=== PATIENT | male | born 1965 | race Caucasian/White ===

== ENCOUNTER 2024-11-28 18:27 | Emergency (ER) | payer OTHER, SELFPAY ==
[2024-11-28 18:34] VITALS: BP 128/72; PULSE 96; RESP 18; TEMP 36.9; O2SAT 97
--- NOTE | 2024-11-28 18:44 | EDNOTE_ITS ---
ED Extremity Problem RME/HPI General Chief complaint: Extremity Problem,Nontraumatic Stated complaint: LOWER LEG PAIN Time Seen by Provider: 11/28/24 18:31 Arrival date/time: 11/28/24 18:27 RME / HPI RME / HPI Narrative: DR. GINGER FLORES ED EVALUATION: 59 y/o male with SHx of titanium implants and Hx of Hypertension, Hepatitis, Cirrhosis, and Dialysis presents to ED BIB [facility] c/o redness and a dark lesion to the right lower arcos x yesterday. Patient reports having titanium implants from the ankles down to the toes. Patient has been in custody for the last 8 days. Implants were placed by Dr. Liu at [facility]. Per , patient was also sent to request a change of medication. Denies pain, nausea, fever, and vomiting. Patient has no allergies to medication. No other concerns or complaints expressed at this time. Related Data Previous Rx's ?Medication ?Instructions ?Recorded folic acid 1 mg tablet 1 mg PO QDAY #30 tabs nystatin 100,000 unit/gram topical 0 gm TOP BID ##30 0 03/09/16 powder (Nystop) thiamine HCl (vitamin B1) 100 mg 100 mg PO QDAY #30 ta bs 03/09/16 tablet (Vitamin B-1) gabapentin 800 mg tablet 800 mg PO BID #60 tabs 12/09 valacyclovir 1 gram tablet 1,000 mg PO TID #20 tabs sulfamethoxazole 800 1 tab PO BID #20 tabs mg-trimethoprim 160 mg tablet (Bactrim DS) Allergies Allergy/AdvReac Type Severity Reaction Status Date / Time No Known Allergies Allergy Verified 12/09/20 14:31 Review of Systems Review of Systems Systems Reviewed: All systems reviewed, normal except as documented Past Medical History Past Medical History CARDIAC: Positive Hypertension RESPIRATORY: Positive Asthma GASTROINTESTINAL: Positive Hepatitis, Cirrhosis and Gastrointestinal Bleed GENITOURINARY: Positive Kidney Stones, Dialysis and Benign Prostatic Hyperplasia MUSCULOSKELETAL: Positive Fractures Social History SMOKING STATUS: Current every day smoker SUBSTANCE USE: marijuana ED Exam Narrative Physical exam: GEN. APPEARANCE: The patient is alert awake oriented X-3 in no distress, lying down comfortably, does not look ill/toxic. Patient has good eye contact. Patient is cooperative. VITALS: All vitals were reviewed and the pulse ox is 97% on room air which is normal according to my interpretation. HEENT: Normocephalic, atraumatic. Pupils are equal and reactive. Oral mucosa is moist. Patent Nares NECK: Supple, nontender, no thyromegaly, no meningismus, no JVD CHEST: Symmetrical, atraumatic, and with equal expansion , Nontender on palpation no deformity and no crepitus. CARDIOVASCULAR: Heart regular rhythm no murmur or gallop rub or extra beats. LUNGS: Clear to auscultation bilaterally with symmetrical chest rise. No laboring tachypnea or wheezing. No intercostal subcostal retraction. No rales and no rhonchi. ABDOMEN: Soft, flat, nontender to palpation, no guarding or rebound tenderness. There are no abnormal masses palpated. Active and normal bowel sounds. EXTREMITIES: Nontender. No edema. No cyanosis. Patient is able to move all 4 extremities well, with full ROM and good CSM. Good DP pulse to left foot. RLE doppler DP pulse. SKIN: Warm and dry, no jaundice or rashes noted. Dark purple 1.5 cm lesion to the medial internal right arcos, [id number], fluctuance, and scaling to RLE. Exposed metal at medial surface of right foot, possibly a screw. 1.5 cm wound with good granulated tissue to the left heel. BL chronic venous stasis. RLE purple, cap refill, no pain. NEURO: Patient is HAWK x 4, Cranial nerves II through XII grossly intact. There is no focal neurologic deficits noted. GCS is 15, PNS and QUILL COLLECTOR appear grossly intact. PSYCHIATRIC: Patient is in normal mood and affect Course Course Course Narrative: 2233: Called Dr. Christiansen, our radiologist, regarding the patient's CTA LE results. States he will go over the CTA again and edit as needed. Quality Measures none Orders Category Date Time Status CT Screening NOW Care 11/28/24 18:45 Active IV [Insert IV] NOW Care 11/28/24 20:[address] angio LE RT Stat Exams 11/28/24 18:44 Completed XR ankle comp BI min 3V Stat Exams 11/28/24 23:21 Completed XR foot comp BI min 3V Stat Exams 11/28/24 23:21 Completed Blood Culture (Lab) Stat Lab 11/28/24 23:36 Received CBC Stat Lab 11/28/24 19:07 Completed CMP [Comprehensive Metabolic Panel] Stat Lab 11/28/24 19:07 Completed ESR [Sed Rate (ESR)] Stat Lab 11/28/24 19:07 Completed INR [Prothrombin Time with INR] Stat Lab 11/28/24 19:07 Completed Procalcitonin Stat Lab 11/28/24 19:07 Completed Piper/Tazo Inj [Zosyn Inj] 4.5 gm Med 11/28/24 23:21 Discontinued Sodium Chloride 0.9% (Pop) [NS 0.9% mini bag] 100 ml IV X1 TET,DIP/PERT AC (Adult)-Tdap [Boostrix Adult (Tdap) Med 11/28/24 19:00 Discontinued Vacc] 0.5 ml IMI .ONCE ONE Vancomycin Inj Med 11/29/24 00:46 Discontinued 500 mg .ROUTE .STK-MED ONE Vancomycin Inj 1,500 mg Med 11/28/24 23:21 Discontinued Sodium Chloride 0.9% 500 ml [Ns] 500 ml IV X1 Vital Signs Vital signs: Vital Signs Temperature 98.5 F 11/28/24 18:34 Pulse Rate 96 11/28/24 18:34 Respiratory Rate 18 11/28/24 18:34 Blood Pressure 128/72 11/28/24 18:34 Pulse Oximetry (%) 97 11/28/24 18:34 Oxygen Delivery Method Room Air 11/28/24 18:34 Extremity Problem MDM Narrative MDM Narrative:: Scribe Attestation: Yanique Cavanaugh am scribing for and in the presence of Dr. Singh. Provider Notation: Although this document has been carefully reviewed, there may still be some phonetic and other typographical errors.? These errors are purely grammatical due to imperfections in the software program and should not be construed in any way to?compromise the substance of the patient's medical care during this visit. Patient is a 59-year-old male medical history notable for peripheral vascular disease, prior fractures of bilateral ankles status post hardware placement in [facility] emergency department with concerns for abnormal skin growth on the medial surface of his right lower leg as well as exposed hardware in both of his feet. Vital signs and exam as above. Concern for failed hardware, osteomyelitis, deep space infection, arterial venous malformation, hemangioma, abscess of the right lower extremity, osteomyelitis. Ordered labs, bilateral ankle and foot x-rays, CT of bilateral lower extremities with contrast, and labs. Labs without any acute hematologic or significant metabolic abnormality. Patient with mild elevation in his inflammatory markers. 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 Provided patient with broad-spectrum antibiotics, ordered blood cultures. Initiated transfer for vascular and orthopedic surgery. 0018: [facility] declined the patient for transfer due to being at capacity. 0314: Discussed case with [facility]'s transfer center. Discussed patients ED course, exam findings, labs, and radiology results. Declined the patient for transfer due to their facility not doing revisions. 0600 at this time accepted under transition care over to oncoming provider Dr. Ba. Patient is pending discussion with an orthopedic surgical service that performs revisions as well as vascular surgery for definitive management of his exposed hardware, osteomyelitis and AVM of his lower extremity. Patient data External records reviewed:: [facility] previous records (Reviewed prior ED records from 06/30/23. Patient was seen for Chronic wound of extremity.) and Other (specify) ([facility]) Clinical information provided by:: patient and law enforcement Social determinants that could affect healthcare access:: substance use (Marijuana, Incarceration) Patient has the following chronic illnesses:: Hypertension, Asthma, Hepatitis, Cirrhosis, Kidney Stones, Benign Prostatic Hyperplasia How is presenting disease/condition affected by chronic disease/condition?: exacerbated by Evaluation data The following diagnostics were reviewed and interpreted by me:: lab results and radiology exam(s) Lab and/or radiology exams considered but not ordered:: None Interpretation Summary: RADIOLOGY CTA LE: [facility] Report Signed with Meraryenda Patient: KATHARINA CASE Med. Record#: [id number] Birthdate: 1965 Age/Sex: 59 / M [facility] Attending Dr: Ordering Physician: Elsy Singh MD Date of Service: 11/28/24 Procedure(s): CT angio LE RT Accession Number(s): [id number] cc: Emre Johnson MD; Satinder Christiansen MD; Elsy Singh MD~ ADDENDUM ADDENDUM #1 Examination: CTA right lower extremity with intravenous contrast 2-D reconstructions 3-D reconstructions, vascular Date and time of exam: November 28, 20242025 hours INDICATIONS: Thigh pain this week CTDI: vol (mGy) 4.18 DLP: (mGycm) 494 Technique: Multiple axial sections of the right lower extremity with intravenous contrast 2-D sagittal and coronal reconstructions. 3-D angiographic renderings, 3-D volume renderings, 3D post processing, vascular maximum intensity projections obtained. Contrast administered is cc [id number]. Low dose protocols were performed. One or more of the following dose reduction techniques were used; automated exposure control, adjustment of the mA and/or KV according to patient size, use of iterative reconstruction technique. Findings: Distal aorta right common iliac right external iliac right common femoral artery is intact Superficial femoral artery intact There is prominent arterioles and draining veins in the medial thigh, angiodysplasia versus arteriovenous malformation, 3-D image 6 Popliteal artery trifurcation vessels do fill to the ankle No femur or tibia-fibula fractures right lower extremity Advanced narrowing lateral patellofemoral joint Posterior right calcaneal screws do protrude through the soft tissue to the skin surface posteriorly, on the left, axial image 549 as well as near the skin surface lateral surface of the calcaneus axial image 549 Cortical bone destruction involving the lateral calcaneus on the right axial image 552 Incidental note cortical bone destruction involving the posterior medial right calcaneus axial images 541 IMPRESSION: Prominent arterials and draining veins in the medial right thigh, angiodysplasia versus arteriovenous malformation Osteomyelitis bilateral calcaneus with orthopedic hardware exposed at the skin surface posterior calcaneus on the right Recommend bilateral plain films right and left foot follow-up ORIGINAL REPORT Examination: AP chest single view FINDINGS: AP portable semiupright chest single view Date and time: November 28, 2024 10:20 PM INDICATIONS: Left-sided flank pain today, sepsis protocol FINDINGS: Normal heart size. Lungs are clear. Orthopedic screws upper thoracic spine and clips right apex IMPRESSION: No pneumothorax or pulmonary contusion Addendum Dictated By: Satinder Christiansen MD Addendum Signed By: <Electronically signed by Satinder Christiansen MD in OV> 11/28/242244 Addendum Cosigned By: DD/ TD/TT: 11/28/24 Examination: AP chest single view FINDINGS: AP portable semiupright chest single view Date and time: November 28, 2024 10:20 PM INDICATIONS: Left-sided flank pain today, sepsis protocol FINDINGS: Normal heart size. Lungs are clear. Orthopedic screws upper thoracic spine and clips right apex IMPRESSION: No pneumothorax or pulmonary contusion Dictated By: Satinder Christiansen MD Signed By: <Electronically signed by Satinder Christiansen MD in OV> 11/28/242225 [facility] Report Signed Patient: KATHARINA CASE Record#: [id number] Birthdate: 1965 Age/Sex: 59 / M Location: [facility] Attending Dr: Ordering Physician: Elsy Singh MD Date of Service: 11/28/24 Procedure(s): XR ankle comp BI min 3V Accession Number(s): [id number] cc: Josefina([facility])Zayra MD; Satinder Christiansen MD; Elsy Singh MD~ Examination: Ankle Bilateral, 6 views Technique: Lateral each ankle total 6 views Date and time of exam: November 28, 2024 11:56 PM INDICATIONS: Chronic nonhealing wounds both feet several months, surgery to both feet 7 years ago Findings: Severe osteopenia Extensive orthopedic hardware right ankle including distal fibula, distal tibia, calcaneus, tarsal metatarsals Soft tissue defects distal right tibia which extend to a tibial sideplate with bone destruction involving the distal lateral tibial margin on the oblique view Orthopedic screws traversing left talus and calcaneus with calcaneal orthopedic screw protruding into the soft tissue posterior left ankle with cortical bone destruction at this site posterior calcaneus IMPRESSION: Osteomyelitis distal lateral right tibial margin Osteomyelitis posterior left calcaneus Dictated By: Satinder Christiansen Signed By: <Electronically signed by Satinder Christiansen MD in OV> 11/29/24 0010 [facility] Report Signed Patient: KATHARINA CASE. Record#: [id number] Birthdate: 1965 Age/Sex: 59 / M Location: [facility] Attending Dr: Ordering Physician: Elsy Singh MD Date of Service: 11/28/24 Procedure(s): XR foot comp BI min 3V Accession Number(s): [id number] cc: Josefina([facility]),Zayra MONTESINOS; Satinder Christiansen MD; Elsy Singh MD~ Examination: Foot bilateral, 5 views Technique: Bilateral AP, right and left oblique, lateral views foot, 5 views Date and time of exam: November 28, 2024 11:53 PM INDICATIONS: Nonhealing wounds right and left foot several months, surgery to right nephrolith 7 years ago IMPRESSION: Please see the ankle reports Right foot tarsometatarsal fusions first and second rays No cortical bone destruction involving right metatarsals or digits Metatarsals and digits left foot intact IMPRESSION: Please see the bilateral ankle reports No cortical bone destruction involving the metatarsals or digits right and left foot Dictated By: Satinder Christiansen MD Signed By: <Electronically signed by Satinder Christiansen MD in OV> 11/29/24 0013 Medications / Prescriptions Medications or Prescriptions considered but not ordered:: None Medication administrations:: Medication Administration History Discontinued Medications Diphtheria/Tetanus/Acell Pertussis (Diphth,Pertuss(Acell),Tet Vac 0.5 Ml Syr- Adult) 0.5 ml IMi .ONCE ONE Stop: 11/28/24 19:01 Last Admin: 11/28/24 20:00 Dose: 0.5 ml Documented By: JESSICA Vancomycin HCl 1,500 mg/ (Sodium Chloride) 500 mls @ 300 mls/hr IV X1 ONE Stop: 11/29/24 01:00 Last Infusion: 11/29/24 02:42 Dose: Infused Documented By: Admin: 11/29/24 00:55 Dose: 300 mls/hr Documented By: CVL Piperacillin Sod/Tazobactam (Sod 4.5 gm/ Sodium Chloride) 100 mls @ 200 mls/hr IV X1 ONE Stop: 11/28/24 23:50 Last Infusion: 11/29/24 00:49 Dose: Infused Documented By: Admin: 11/29/24 00:16 Dose: 200 mls/hr Documented By: CVL Vancomycin HCl (Vancomycin Inj 500 Mg Vial) Confirm Administered Dose 500 mg .ROUTE .STK-MED ONE Stop: 11/29/24 00:47 Last Admin: 11/29/24 00:59 Dose: Not Given Documented By: CVL Non-Admin Reason: Duplicate Medication on eMAR See above if any Consultations Consultation(s) initiated? (list below): No Diagnosis Extremity Problem Differential Diagnosis: gout, cellulitis, superficial thrombophlebitis, deep venous thrombosis of upper extremity, lower extremity edema and deep vein thrombosis of lower extremity Most likely diagnosis given after review of the tests above:: see clinical impression below Admission Indicated Admission indicated?: not indicated Explain why admission is indicated or not indicated:: Patient requires a higher reprh-it-yoga. Admission Request Was there a request for admission?: No Disposition Plan Disposition Plan: other (specify) (Signed out to Dr. aB at 0600 pending transfer.) Critical Care Time Critical Care Time Critical Care Time: Yes Total Critical Care Time (min.): 40 Attestation: The high probability of sudden, clinically significant deterioration in the patient?s condition required the highest level of my preparedness to intervene urgently. The services I provided to this patient were to treat and/or prevent clinically significant deterioration. Services included the following: chart data review, reviewing nursing notes and/or old charts, documentation time, investment consultant collaboration regarding findings and treatment options, medication orders and management, direct patient care, vital sign assessments and ordering, interpreting and reviewing diagnostic studies and lab tests. Aggregate critical care time includes only time during which I was engaged in work directly related to the patient?s care, as described above, whether at bedside or elsewhere in the Emergency Department. It did not include time spent performing other reported procedures or the services of residents, students, nurses or physician assistants. Discharge Plan Prescriptions/Referrals Prescriptions/Med Rec: No Action thiamine HCl (vitamin B1) [Vitamin B-1] 100 MG tablet 100 mg PO QDAY Qty: 30 0RF folic acid 1 MG tablet 1 mg PO QDAY Qty: 30 0RF nystatin [Nystop] 60 GM powder 0 gm TOP BID Qty: 30 0RF valacyclovir 1 gram tablet 1,000 mg PO TID Qty: 20 0RF gabapentin 800 mg tablet 800 mg PO BID Qty: 60 0RF sulfamethoxazole-trimethoprim [Bactrim DS] 800-160 mg tablet 1 tab PO BID Qty: 20 0RF Referrals: Emre Johnson MD [Physician] - In 1 week Problem List Clinical Impression: Osteomyelitis, Arterio-venous malformation, Exposed orthopaedic hardware, Vascular disease Patient/Caregiver Discharge Instructions Print Language: St Helen[place]
[2024-11-28 18:53] VITALS: BMI 20.2
[2024-11-28 19:15] LABS: Basophils % (Auto) 0 % (0-2.5); Eosinophils # (Auto) 0.3 Thou/mm3 (0.0-0.5); Eosinophils % (Auto) 4 % (0-10); Hematocrit 45.2 % (41.0-53.0); Hemoglobin 15.6 g/dL (13.5-16.0); Immature Granulocytes % (Auto) 0 % (0-0); Immature Granulocytes Auto 0.02 Thou/mm3 (0.00-0.00); Lymphocytes # (Auto) 1.3 Thou/mm3 (1.0-4.8); Lymphocytes % (Auto) 18 % (10-50); Mean Corpuscular HGB Conc 34.5 g/dl (31.0-37.0); Mean Corpuscular Hemoglobin 29.1 pg (25.0-35.0); Mean Corpuscular Volume 84 fL (80-100); Monocytes # (Auto) 0.6 Thou/mm3 (0.0-0.8); Monocytes % (Auto) 9 % (0-12); Neutrophils # (Auto) 4.9 Thou/mm3 (1.8-7.7); Neutrophils % (Auto) 69 % (37-80); Nucleated Red Blood Cell % 0 /100 WBC (0); Platelet Count 258 Thou/mm3 (140-440); RDW Standard Deviation 44.6 fL (35.1-43.9); Red Blood Count 5.36 Miln/mm3 (4.50-5.90); White Blood Count 7.1 Thou/mm3 (3.8-10.6)
[2024-11-28 19:35] LABS: INR 1.1 (0.9-1.3); Prothrombin Time 11.7 Seconds (9.0-12.2)
[2024-11-28 19:47] LABS: Alanine Aminotransferase 99 U/L (10-49); Albumin, Serum 4.5 gm/dL (3.5-5.0); Albumin/Globulin Ratio 1.8 (1.2-2.2); Alkaline Phosphatase 207 U/L (46-116); Anion Gap 8 (7-16); Aspartate Amino Transferase 21 U/L (0-34); BUN/Creatinine Ratio 12 Ratio (12-20); Bilirubin,Total 0.3 mg/dL (0.3-1.2); Blood Urea Nitrogen 16 mg/dL (9-23); Calcium 9.8 mg/dL (8.3-10.6); Calcium (Corrected) 9.8 mg/dL (8.5-10.1); Carbon Dioxide 28.2 mMol/L (20.0-31.0); Chloride 101 mMol/L (98-107); Creatinine (Component) 1.3 mg/dL (0.6-1.3); Estimated Creatinine Clearance 60.1 mL/min (>60); Globulin 2.5 gm/dL (2.3-3.5); Glucose 98 mg/dL (74-106); Osmolality,Calculated 275 (275-295); Potassium 4.6 mMol/L (3.4-5.1); Procalcitonin 0.11 ng/ml (0.0-0.49); Sodium 137 mMol/L (136-145); eGFR > 60 See Note
[2024-11-28 19:57] LABS: Sed Rate (ESR) 23 mm/hr (0-20)
[2024-11-28] MEDS: DIPHTH,PERTUSS(ACELL),TET VAC 0.5 ML SYR- ADULT IMi (20:00)
--- NOTE | 2024-11-28 23:21 | XR_ITS ---
Examination: Ankle Bilateral, 6 views Technique: Lateral each ankle total 6 views Date and time of exam: November 28, 2024 11:56 PM INDICATIONS: Chronic nonhealing wounds both feet several months, surgery to both feet 7 years ago Findings: Severe osteopenia Extensive orthopedic hardware right ankle including distal fibula, distal tibia, calcaneus, tarsal metatarsals Soft tissue defects distal right tibia which extend to a tibial sideplate with bone destruction involving the distal lateral tibial margin on the oblique view Orthopedic screws traversing left talus and calcaneus with calcaneal orthopedic screw protruding into the soft tissue posterior left ankle with cortical bone destruction at this site posterior calcaneus IMPRESSION: Osteomyelitis distal lateral right tibial margin Osteomyelitis posterior left calcaneus
--- NOTE | 2024-11-28 23:21 | XR_ITS ---
Examination: Foot bilateral, 5 views Technique: Bilateral AP, right and left oblique, lateral views foot, 5 views Date and time of exam: November 28, 2024 11:53 PM INDICATIONS: Nonhealing wounds right and left foot several months, surgery to right nephrolith 7 years ago IMPRESSION: Please see the ankle reports Right foot tarsometatarsal fusions first and second rays No cortical bone destruction involving right metatarsals or digits Metatarsals and digits left foot intact IMPRESSION: Please see the bilateral ankle reports No cortical bone destruction involving the metatarsals or digits right and left foot
--- NOTE | 2024-11-28 23:46 | PC.NURSE ---
CONTACTED [facility] [phone] SPOKE WITH ONI ABOUT POSSIBLY TRANSFERRING THE PATIENT TO THAT FACILITY DUE TO PATIENT HAVING PRIOR SURGERY THERE WITH DR MOREIRA. TRANSFER PACKET FAXED [phone]
[2024-11-28 23:53] VITALS: BP 120/74; PULSE 70; RESP 17; TEMP 37; O2SAT 96
[2024-11-29] VITALS (8 sets, daily range): BP systolic 99–120; BP diastolic 52–70; PULSE 53–70; RESP 16–20; TEMP 36.7–37.1; O2SAT 95–99
[2024-11-29] MEDS: PIPER/TAZO INJ 4.5 GM in SODIUM CHLORIDE 0.9% (POP) 100 ML IV ×2 (00:16→21:39)
--- NOTE | 2024-11-29 00:41 | PC.NURSE ---
JAYLYN WOO DECLINED DUE TO CAPACITY
[2024-11-29] MEDS: Vancomycin Inj 1,500 MG in SODIUM CHLORIDE 0.9% 500 ML 500 ML 300 MG IV (00:55)
--- NOTE | 2024-11-29 01:07 | PC.NURSE ---
[facility] CONTACTED FOR POSSIBLE TRANSFER ORTHO AND VASCULAR, SPOKE WITH PHIL AND SHE IS GOING TO REVIEW PACKET. IMAGES PUSHED ON SYNAPSE
--- NOTE | 2024-11-29 01:16 | PC.NURSE ---
[facility] CONTACTED FOR POSSIBLE TRANSFER,SPOKE WITH JANIS, HE WILL REVIEW PACKET AND CALL BACK
--- NOTE | 2024-11-29 03:26 | PC.NURSE ---
[facility] DECLINED STATED THAT THEY DONT DO REVISIONS OF HARDWARE AND TO REACH OUT TO [facility]
--- NOTE | 2024-11-29 03:27 | PC.NURSE ---
[facility] CONTACTED, SPOKE WITH JORDY, ADVISED LOOKING FOR TRANSFER, SHE WILL CALL BACK
--- NOTE | 2024-11-29 06:49 | EDNOTE_ITS ---
Emergency Room Addendum <Karolina Raphael - Last Filed: 11/29/24 16:19> Addendum Narrative: I took over the care from Dr. Singh, the previous shift physician at 0600 hours on 11/29/2024.? See previous notes for complete H & P and ED course. I reviewed all diagnostic test results. My interpretation of the EKG is? My review of the CT report is? Blood tests and urine tests At this point, diagnoses include osteomyelitis, exposed orthopaedic hardware Treatment here included Significant improvement Based on my best medical judgment, made decision no further evaluation or treatment indicated at this time.? Patient understands and agrees to the d ischarge instructions customized and printed, see below. Discharge Instructions from Dr. Ba printed for you: 1. After evaluation, you have osteomyelitis (bone infection) in lower extremities. 2. We tried to transfer you to another facility due to lack of orthopedic services here currently. But every facility declined because no emergent intervention is indicated. 3. Take doxycycline as prescribed for 45 days. 4. [facility] in [place] for wants to see you on 12/04/2024 at their Podiatry Clinic in [place] (Dr. Smith). The address is [address] [place] [address]. Phone number is [phone]. Call the office tomorrow morning to make the appointment. Ask to review all test results and official radiology reports, to make sure you receive all necessary follow-ups and monitoring. 5. When resting or sitting or sleeping, elevate both feet and ankles above your waist level. 6. Seek immediate medical care with fever or with any concerns. Sushant Ba MD <Sushant Ba MD - Last Filed: 11/29/24 17:41> Addendum Narrative: I took over the care from Dr. Singh, previous shift physician at 0600 on 11/29/2024.? See previous notes for complete H & P and ED course. At this point, diagnoses include osteomyelitis, exposed orthopaedic hardware. Our transfer nurse has tried to find facility to take care of the patient without success, will continue the effort. At 6 PM on 11/29/2024, the care of the patient was transferred to Dr. Singh. During my watch, the patient remained stable. Sushant Ba MD
--- NOTE | 2024-11-29 08:17 | PC.CM ---
Addendum entered by Gaby Yuen RN 11/29/24 19:26: I called [facility] to make sure I had the right fax number because it was not going thought. They gave me another number to try [phone]. The other number I had was correct [phone]. I faxed information to [facility] at this time. Addendum entered by Gaby Yuen RN 11/29/24 19:16: I reported off to [place] charge nurse and left packet with him in the ED. Packet started and 1 CD in packet. I did not cancel the appointment at [facility] in [place] just in case patient was not accepted anywhere. Addendum entered by Gaby Yuen RN 11/29/24 18:47: I contacted [facility] and initiated transfer. Addendum entered by Gaby Yuen RN 11/29/24 18:34: I contacted [facility] and I spoke to housekeeper child care Sumit phone # [phone]. He transferred me to the ED charge nurse and she asked me to fax over information. She states they are at change of shift so they will hand it to the night doctor coming on. I faxed information at this time to [phone]. Addendum entered by Gaby Yuen RN 11/29/24 17:37: Dr. Ba called me back and stated Dr. Cunha would like me to call [facility] phone # [phone] . He [address]. Cunha worked at [facility] and he thinks they will accept patient. Dr. Cunha called me also and he provided me with his cell number [phone]. He asked that I call [facility] and [facility] in [place]. I let him know I would reach out to those hospitals. Addendum entered by Gaby Yuen RN 11/29/24 15:37: I spoke to Dr. Ba and he states patient will be discharged. I let him know that Jose Guadalupe can see patient at their Podiatry Clinic in [place] and the address is [address] [place] [address]. phone # [phone]. Transfer nurse states they can see patient on TuesdayDecember 04. Patient needs to call the number provided # [phone]. Addendum entered by Gaby Yuen RN 11/29/24 13:32: I called [facility] transfer center and I let Annabelle know that Dr. Ba was ordering more tests. I let her know that we would get back to her concerning outpatient appointment. I let Annabelle know Dr. Ba wanted to see the results from his new tests he ordered to make sure patient would be stable to wait and follow up as outpatient. Patient was declined by [facility], [facility], [facility], and [facility]. Addendum entered by Gaby Yuen RN 11/29/24 13:20: [facility] in [place] called me and I spoke to transfer nurse Annabelle. She states their ortho doctor reviewed patients information and he feels patient does not need to be transferred. Dr. Smith states patient can follow up at their Podiatry Clinic in [place]. the address is [address] [place] [address]. phone # [phone]. I called and provided information to Jesenia. He stated he ordered more tests, so he wanted to see what the test showed before deciding. Addendum entered by Gaby Yuen RN 11/29/24 11:13: 1045 [facility] called back and stated they are at capacity and they declined transfer. Addendum entered by Gaby Yuen RN 11/29/24 11:12: 1010 I contacted [facility] to initiate transfer. I spoke to Ref[place] and faxed over information. Original Note: 5646 [facility] transfer nurse Annabelle called me back and stated there ortho doctor is in surgery this morning but they will present patient. I let her know our doctor is stating patient will need vascular and ortho. I transferred her to Dr. Ba. Mickey stated packet has been started and they have the CD. 3458 I faxed information to [facility]. 2806 I received a call from Mickey stating patient was declined by [facility] because they were at capacity. Patient had surgery and had hardware placed in [facility] in 2017. Mickey states [facility] declined and so did [facility]. [facility] stated patient need a tertiary center or trauma center.
--- NOTE | 2024-11-29 09:30 | PC.NURSE ---
CONTACTED BY RN SPRAY GUN REPAIRER HELPER AT [facility], UPDATE OF STATUS OF PATIENT GIVEN. DR. LISA IBARRA [phone] AT FACILITY CAN BE CONTACTED IF NEEDED.
--- NOTE | 2024-11-29 12:06 | XR_ITS ---
Examination: Arterial duplex lower extremity study. INDICATIONS: Nonhealing wounds in the legs one year Date and time of exam: November 29, 2024 1214 hours Findings: Duplex sonographic imaging of the lower extremity arteries using B-mode/Bocanegra scale imaging and Doppler spectral analysis and color flow. Ankle brachial indices have been recorded. Right common femoral artery demonstrates triphasic flow. Right superficial femoral artery demonstrates triphasic flow. Right popliteal artery demonstrates triphasic flow. Right posterior tibial artery demonstrated triphasic flow. Right ankle/brachial index is 1.1. Left common femoral artery demonstrates triphasic flow. Left superficial femoral artery demonstrates triphasic flow. Left popliteal artery demonstrates triphasic flow. Left posterior tibial artery demonstrated triphasic flow. Left ankle/brachial index is 1.2. Impression: Negative study
[2024-11-29] MEDS: VANCOMYCIN/NS 1 GM IVPB 200 ML IV (15:47)
--- NOTE | 2024-11-29 19:23 | ESCONSULT_ITS ---
HPI Consult details Reason for consultation narrative: Pain redness right leg History of present illness: Patient 59-year-old who has developed blister spontaneously drained with redness increased heat right leg has been going on for several days. Past Medical History Past Medical History NEUROLOGIC: Negative Transient Ischemic Attacks (TIA) or Parkinson's Disease CARDIAC: Positive Hypertension; Negative Cardiac Disorders, Cardiac Arrhythmia or Congestive Heart Failure RESPIRATORY: Negative Chronic Obstructive Pulmonary Disease (COPD), Asthma or Tuberculosis GASTROINTESTINAL: Positive Hepatitis, Cirrhosis and Gastrointestinal Bleed GENITOURINARY: Positive Renal Disease, Kidney Stones, Dialysis and Benign Prostatic Hyperplasia MUSCULOSKELETAL: Positive Fractures; Negative Bone Cancer ENDOCRINE: Negative Diabetes Mellitus Type 1 or Diabetes Mellitus Type 2 HEMATOLOGIC: Negative Leukemia or Sickle Cell Disease OTHER HISTORY: Negative Down Syndrome or Developmental Delay Family History FAMILY HISTORY: Negative Family Cardiac Disorders Surgical History SURGICAL: Positive Joint Replacement Social History SMOKING STATUS: Current every day smoker SUBSTANCE USE: marijuana Meds Home Medications and Allergies Allergies Allergy/AdvReac Type Severity Reaction Status Date / Time No Known Allergies Allergy Verified 12/09/20 14:31 Exam Vital Signs Temp Pulse Resp BP Pulse Ox O2 Del Method 98.2 F 69 16 109/68 95 Room Air 11/29/24 18:24 11/29/24 18:24 11/29/24 18:24 11/29/24 18:24 11/29/24 18:24 11/29/24 18:24 Temperature 98.2 Narrative Exam Physical examination shows a thin male in no acute distress. He appears to be calorically challenged. He is homeless. He has a chance living with his sister. He is presently in custodial. He has been there for 8 days. Patient has redness distal right leg get circumferential in nature there is no palpable abscess formation. Examination of his right ankle shows no draining ulcers right ankle right foot. Does have palpable screw dorsal aspect of right foot no drainage no redness no heat. Examination left lower extremity shows that he has a draining sinus left calcaneus. Does have deformity left foot Results - Ortho Labs 11/28/24 19:07 11/28/24 19:07 Labs: Short CBC 11/28/24 Range/Units 19:07 WBC 7.1 (3.8-10.6) Thou/mm3 Hgb 15.6 (13.5-16.0) g/dL Hct 45.2 (41.0-53.0) % Plt Count 258 (140-440) Thou/mm3 BMP 11/28/24 19:07 Sodium 137 Potassium 4.6 Chloride 101 Carbon Dioxide 28.2 BUN 16 Creatinine 1.3 Glucose 98 Calcium 9.8 Liver Function 11/28/24 Range/Units 19:07 Total Bilirubin 0.3 (0.3-1.2) mg/dL AST 21 (0-34) U/L ALT 99 H (10-49) U/L Alkaline Phosphatase 207 H (46-116) U/L Albumin 4.5 (3.5-5.0) gm/dL White count 7100 Assessment & Plan Additional Assessment Additional comments: Patient has severe injuries both lower extremities and was operated [address] [facility]. He has had intermittent drainage for a number of years right and left feet. Seen in December 2022 see [facility] and noted to have drainage ankle. He was placed on Bactrim 1 tablet twice a day for 10 days. No further visits. Right now I think he has bullous impetigo. Needs to be started on antistrep drug antistaph drug. I would recommend IV therapy. I am not on-call. I am not able to follow patient. I was here in the emergency room to see another patient with a broken wrist and was asked to see this patient. I would recommend he see general surgery and get their assessment as far as antibiotic therapy is concerned. Right now it does not appear that he needs acute amputation surgery. He does need infectious disease consult as far as chronic suppressive antibiotics are concerned. He smokes. I told him carbon monoxide and the nicotine causes vasoconstriction and low tissue oxygen levels. It puts him at a marked increased risk of requiring amputation surgery. He has cirrhosis and stopped drinking a number of years ago. I told him he needs to have regular follow-up in a clinic. I recommended that he be returned to [facility] where he had his surgery. staff called and they are impacted and cannot take him in transfer. Most likely he is going to need 2 to 4 days of IV antibiotics and then chronic antibiotic therapy. I will not be able to participate in his care since I will not be in [place] I am not on-call today or the weekend. Plan See above recommendations
--- NOTE | 2024-11-29 20:05 | PD.EDADDENDU ---
Emergency Room Addendum <Yanique Bain - Last Filed: 11/30/24 05:03> Addendum Narrative: 1800: Care assumed from Dr. DAVIS (emergency physician) after discharge. Past medical, surgical, social and family history reviewed. Vitals and home medications reviewed. Results and treatment plan discussed. I will assume the care of the patient at this time and will follow the patient, pending possible transfer or admission. 1919: Dr. St recommends i reach out to [facility] to see if Ortho is available who can manage patient's case. If not, advises we speak to general surgery for consult and to keep patient off of antibiotics. 2108: Spoke to Dr. Clements, our on-call general surgeon, at the request of Dr. St to see if he could provide any general surgical support. Dr. Clements declined and states this is strictly an orthopedic issue. 0140: Spoke with Dr. Odonnell. States hardware must come out. Recommends patien be transferred to [facility]. 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 0600: Care assumed by Dr. Hoskins (emergency physician). Past medical, surgical, social and family history reviewed. Vitals and home medications reviewed. Results and treatment plan discussed. They will assume the care of the patient at this time and will follow the patient, pending transfer. <Elsy Singh MD - Last Filed: 11/30/24 05:13> Addendum Narrative: 1800: Care assumed from Dr. DAVIS (emergency physician) after discharge. Past medical, surgical, social and family history reviewed. Vitals and home medications reviewed. Results and treatment plan discussed. I will assume the care of the patient at this time and will follow the patient, pending possible transfer or admission. 1919: Dr. St recommends i reach out to [facility] to see if Ortho is available who can manage patient's case. If not, advises we speak to general surgery for consult and to keep patient off of antibiotics. 2108: Spoke to Dr. Clements, our on-call general surgeon, at the request of Dr. St to see if he could provide any general surgical support. Dr. Clements declined and states this is strictly an orthopedic issue. 0140: Spoke with Dr. Odonnell. States hardware must come out. Recommends patient be transferred to [facility]. 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 Antibiotics provided. Will reach out to [facility] emergency department for transfer of 0500: Reached out to [facility] however there hospitalist at capacity declined transfer. We reached out to [facility] also at capacity. We reached out to [facility] again, hospital continues to be at capacity. 0600: Care assumed by Dr. Hoskins (emergency physician). Past medical, surgical, social and family history reviewed. Vitals and home medications reviewed. Results and treatment plan discussed. They will assume the care of the patient at this time and will follow the patient, pending transfer. Critical Care Time <Yanique Bain - Last Filed: 11/30/24 05:03> Critical Care Time Critical Care Time: Yes Total Critical Care Time (min.): 120 Attestation: The high probability of sudden, clinically significant deterioration in the patient?s condition required the highest level of my preparedness to intervene urgently. The services I provided to this patient were to treat and/or prevent clinically significant deterioration. Services included the following: chart data review, reviewing nursing notes and/or old charts, documentation time, network pricing consultant collaboration regarding findings and treatment options, medication orders and management, direct patient care, vital sign assessments and ordering, interpreting and reviewing diagnostic studies and lab tests. Aggregate critical care time includes only time during which I was engaged in work directly related to the patient?s care, as described above, whether at bedside or elsewhere in the Emergency Department. It did not include time spent performing other reported procedures or the services of residents, students, nurses or physician assistants.
--- NOTE | 2024-11-29 20:08 | PC.NURSE ---
ALONSO FROM THE [facility] CALLED AND THEY ARE DECLING THE PT AT THIS TIME DUE TO NOT HAVING ANKLE SERVICES AT THIS TIME.
[2024-11-30] VITALS (51 sets, daily range): BP systolic 82–123; BP diastolic 42–83; PULSE 53–80; RESP 14–18; TEMP 36.7–37.1; O2SAT 89–100
--- NOTE | 2024-11-30 01:34 | PC.NURSE ---
0132 DR MILES SPEAKING WITH DR NAVARRO AT THIS TIME.
--- NOTE | 2024-11-30 02:24 | PC.NURSE ---
0224 RECEIVED CALL FROM [facility] ASKING IF PT WAS IN CUSTODY.
--- NOTE | 2024-11-30 02:52 | PC.NURSE ---
0250 [facility] DECLINES PT AT THIS TIME DUE TO CAPACITY.
--- NOTE | 2024-11-30 03:39 | PC.NURSE ---
2305 PLACED CALL TO [facility] SPOKE WITH MONICA GOODWIN [phone], FAX # [phone].
--- NOTE | 2024-11-30 04:01 | PC.NURSE ---
0401 SHANTHI GOODWIN WITH [facility] STATES THEY DECLINE PT DUE TO CAPACITY
[2024-11-30] MEDS: PIPER/TAZO 3.375 GM PREMIX 3.375 GM/50 ML BAG IV ×3 (05:29→23:51)
--- NOTE | 2024-11-30 06:06 | PC.NURSE ---
DR NAVARRO ACCEPTED PT BUT DECLINED BY [facility] DR NAVARRO NUMBER AFTER HOUR WAS [phone].
--- NOTE | 2024-11-30 06:23 | PC.NURSE ---
pt was updated on transfer, he is doing well no needs at this time
--- NOTE | 2024-11-30 06:45 | PD.EDADDENDU ---
Emergency Room Addendum <Karolina Raphale - Last Filed: 11/30/24 06:45> Addendum Narrative: 0600: Care assumed from Dr. Singh, the previous shift emergency physician. Past medical, surgical, social and family history reviewed. Vitals and home medications reviewed. I will assume the care of the patient at this time, pending remainder of diagnostic tests and final disposition. Please refer to the emergency department record for history and examination from initial visit.? Physical exam by me shows patient under no acute distress at this time. <Farhat Hoskins MD - Last Filed: 11/30/24 17:08> Addendum Narrative: 0600: Care assumed from Dr. Singh, the previous shift emergency physician. Past medical, surgical, social and family history reviewed. Vitals and home medications reviewed. I will assume the care of the patient at this time, pending remainder of diagnostic tests and final disposition. Please refer to the emergency department record for history and examination from initial visit.? Physical exam by me shows patient under no acute distress at this time. Patient was comfortable today he is getting his antibiotics as scheduled. He is eating he is in no discomfort. Spoke with the transfer nurse and she has contacted multiple places and so far no one has excepted either due to [place] or unable to manage this complication. I encouraged to contact [facility] the location where the patient had his original surgery as they evidently do not have any beds but I would call him back and let them know that all the other surgeons are asking why the patient is not returning back to the place where the surgery regionally occurred. Patient's care goes to oncoming doctor at [address] Ba.
--- NOTE | 2024-11-30 08:30 | PC.CC ---
Addendum entered by Vivian Schofield RN 11/30/24 19:34: 1928 clinicals faxed to [facility] @ [phone]. Addendum entered by Vivian Schofield RN 11/30/24 19:26: 1918 Dr. Ragsdale has accepted the pt. and wants vascular to be involved. [facility] will reach us back. Addendum entered by Vivian Schofield RN 11/30/24 19:06: 1900 received call from Dary at [facility], she stated her orthopedic Dr. Ragsdale is on the line for peer to peer. Conference call connected. Addendum entered by Vivian Schofield RN 11/30/24 19:00: 1849 Called [facility] @ [phone], spoke to and re-initiated the transfer. I had a long conversation with the nurse emphasizing that the patient needs to be transferred. She stated to fax clinicals at [phone]. Addendum entered by Vivian Schofield RN 11/30/24 18:32: [address] [facility] at [phone], spoke to Bowen and re-initiated the transfer request. He stated the number I called is for [facility] and they are no longer with [facility]. Their TC number is [phone]. Addendum entered by Vivian Schofield RN 11/30/24 18:23: 1823 Images pushed over to [facility] using [employer] link. Addendum entered by Vivian Schofield RN 11/30/24 18:13: 1704 I called and informed Dr. Hoskins. He advised reaching out to [facility], as they were the ones who originally implanted the hardware. 1634 Received a call from Marine at [facility]. She informed me that she presented the case to an senior talent acquisition specialist in [place], who stated the hardware is located in the foot and ankle, so it needs to be referred to podiatry. She then presented the case to podiatry, but they declined, stating it is beyond their scope. Finally, she presented the case to an senior talent acquisition specialist in [place], who also declined, stating there isn't much that can be done for the patient. Addendum entered by Vivian Schofield RN 11/30/24 11:59: 1150 I tried to push images through [employer], [employer] is not on there. I tried [employer] and it says maximum upload limit has been reached. I called [facility], spoke to Marine and asked her to send the link, so I can upload images. She stated they don't send out link. She stated it is OK for now. She will reach out to her DrSandra in order to connect him for peer to peer and they can discuss imaging results. Addendum entered by Vivian Schofield RN 11/30/24 11:43: 1136 Received call from Parminder at [facility]. She wants me to push images over. Addendum entered by Vivian Schofield RN 11/30/24 10:12: 1008 called [facility], spoke to Noemi and informed pt would require guard upon transfer. Addendum entered by Vivian Schofield RN 11/30/24 09:58: 0954 received call from ED charge nurse that pt would require guard upon transfer. 0945 Received call from Marine SON asking if patient would require guard upon transfer because pt is in custody. Called ER to find out, unable to connect. Addendum entered by Vivian Schofield RN 11/30/24 09:41: 0940 Clinicals sent to [facility]. Addendum entered by Vivian Schofield RN 11/30/24 09:38: 0926 received call from Kimberly at [facility]. I initiated the transfer request. She stated to fax clinicals. Addendum entered by Vivian Schofield RN 11/30/24 08:58: 0856 Clinicals faxed to [facility]. Addendum entered by Vivian Schofield RN 11/30/24 08:47: 0839 Called [facility], spoke to Roxana and initiate the transfer. She stated to fax clinicals. Original Note: 0830 Called [facility] to initiate the transfer, left VM.
[2024-11-30] MEDS: VANCOMYCIN/NS 1 GM IVPB 200 ML IV (17:20)
--- NOTE | 2024-11-30 18:01 | PD.EDADDENDU ---
Emergency Room Addendum <Delores Johnson - Last Filed: 11/30/24 22:10> Addendum Narrative: I took over the care from Dr. Hoskins at 6 PM on 11/30/2024, see his notes for complete H&P and ED course. I discussed the case with Dr. Jacinto (hospitalist) and Dr. Ragsdale (orthopedic surgeon) from [facility]. About the presentation and exam and diagnostics and treatments here. And need of further care in the hospital there. Will accept the patient for transfer. <Sushant Ba MD - Last Filed: 12/01/24 00:58> Addendum Narrative: I took over the care from Dr. Hoskins at 6 PM on 11/30/2024, see his notes for complete H&P and ED course. I discussed the case with Dr. Jacinto (hospitalist) and Dr. Ragsdale (orthopedic surgeon) at [facility]. About the presentation and exam and diagnostics and treatments here. And need of further care in the hospital there. Will accept the patient for transfer. During my watch, the patient remained stable. Sushant Ba MD
--- NOTE | 2024-11-30 19:50 | PC.NURSE ---
RECEIVED CALL FROM [facility] SPOKE WITH MOSES AND GAVE CLINICALS.
[2024-12-01 01:12] VITALS: BP 107/66; PULSE 77; RESP 12; TEMP 37; O2SAT 99
--- NOTE | 2024-12-01 01:53 | PC.NURSE ---
Nurse to Nurse report given via telephone to HUY Vergara at [facility].
== END 2024-12-01 01:45 | disposition short-term general hospital (02) ==
PROVIDERS: Emergency Medicine; Emergency Provider Emergency Medicine; PCP Internal Medicine
DX: Q27.30 Arteriovenous malformation, site unspecified (principal); M86.9 Osteomyelitis, unspecified; Z75.1 Person awaiting admission to adequate facility elsewhere; Z23 Encounter for immunization
CPT/HCPCS: 36415; 73610; 73630; 73706; 80053; 84145; 85025; 85610; 85652; 87040; 90715; 93925; 96365; 96366; 96367; 99291; 99292; A4649; J2543; J3370; J7999; Q9967